=== PATIENT | male | born 1940 | race Caucasian/White ===

== ENCOUNTER 2022-04-12 09:30 | Inpatient (IN) | payer MEDICARE, OTHER, SELFPAY ==
[2022-03-22 09:31] VITALS: BMI 35.0
[2022-04-12] VITALS (12 sets, daily range): BP systolic 84–164; BP diastolic 44–77; PULSE 54–71; RESP 12–19; TEMP 35.5–36.8; O2SAT 91–98; BMI 35.5
--- NOTE | 2022-04-12 | DI.RAD.S_ITS ---
PROCEDURE: XR LUMBAR SPINE 2-3V INDICATIONS: L4-5 L5-S1 TLIF TECHNIQUE: 3 intraoperative views of the lumbar spine were acquired. COMPARISON: None. FINDINGS: Intraoperative spot views demonstrate lumbosacral fusion hardware as well as interbody device placement. IMPRESSION: Intraoperative imaging as above. Dictated by: Addison Murillo M.D. on 04/12/2022 at 16:23 Approved by: Addison Murillo M.D. on 04/12/2022 at 16:23
[2022-04-12 10:16] LABS: COVID19 -Nasal RAPID Negative (Negative)
[2022-04-12] MEDS: LACTATED RINGERS 1,000 ML 42 ML IV ×2 (10:21→14:51)
[2022-04-12] MEDS: ACETAMINOPHEN 325 MG TABLET 975 MG PO (10:23)
[2022-04-12] MEDS: PREGABALIN 75 MG CAPSULE PO (10:23)
--- NOTE | 2022-04-12 11:15 | PM.PREOP ---
Pre-operative Note COVID-19 COVID-19 status: Negative Result date/Date tested (Pos, Neg/Pending): 04/11/22 Criteria for continued procedure: Expected advancement of disease process, Possibility delay results in more complex future surgery or treatment, Increased loss of function, Continuing or worsening of significant or severe pain, Deterioration of the patient's condition or overall health and Delay expected to result in less-positive ultimate med/surg outcome Interval Note History & Physical reviewed/Exam performed by Physician: Yes Changes to H&P: No
[2022-04-12] MEDS: CEFAZOLIN 2 GM/100 ML PREMIX 100 ML IV ×2 (12:00→21:01)
--- NOTE | 2022-04-12 12:36 | SUR.OPER ---
Prone on spine table, head in foam head support, padded chest and pelvic supports, gel pad at knees, lower legs supported by pillows; nipples, genitalia and toes free of pressure, arms secured on foam padded arm boards at <90 degrees abduction. Tape over blanket at thigh secured to table.
[2022-04-12] MEDS: BUPIVACAINE LIPOSOME 266 MG/20 ML VIAL INJ (12:54)
[2022-04-12] MEDS: BUPIVACAINE 0.5% W/ EPI (PF) 30 ML VIAL INJ (12:54)
--- NOTE | 2022-04-12 15:30 | P.OP_ITS ---
Operative Date/Time/Diagnoses Date of procedure: 04/12/22 Time of procedure: 12:00 Pre-op diagnosis: 1. L4-5, L5-S1 spondylolisthesis 2. L4-5, L5-S1 spinal stenosis with neurogenic claudication Post-op diagnosis: same Procedure & Clinicians Procedure: 1. L4-5, L5-S1 Postero-lateral and posterior interbody fusion 2. L4-5, L5-S1 interbody cage placement. 3. L4-5, L5-S1 decompressive laminectomy with bilateral facetecomies 4. L4-5, L5-S1 Posterior segmental instrumentation 5. [place] of bone marrow from iliac crest 6. Utilization of microsurgical technique and operating microscope 7. Utilization of robotic assisted navigation Same procedure as scheduled: Yes Indications: Patient has been having chronic back pain and worsening lumbar radiculopathy and symptoms of neurogenic claudication. Patient failed multiple conservative management with worsening pain weakness and numbness in his lower extremity. Patient has been having difficulty performing activity of daily living. After discussing risks benefits of treatment options, patient elected proceed with surgery. Surgeon: Darshana Oswald Latex Ribbon Machine Operator: Analilia Mills Click Yes if Unassisted: No Anesthesia Type: General Operative Notes Closure Type: primary Specimen(s): none sent Prosthetic devices, grafts, tissues, transplants, or devices: Globus CREO MIS screws, Rise cages Applied: catheter Estimated Blood Loss (mL): 100 Blood products transfused: none Procedure in detail: Patient was seen in the preoperative area. Risks and benefits of the surgery was discussed with the patient. Informed consent was obtained from the patient and placed in the chart. Surgical site was marked. Patient was taken to the operative room. General anesthesia was administered. Prophylactic antibiotic was given to the patient less than 30 min before the incision was made. Patient was placed into a prone position on the Kvng table. Patient's back was then prepped and draped in the sterile fashion. Time-out was performed at this time. After patient was prepped and draped, patient's PSIS was palpated and marked bilaterally. Small 1 cm incision was made over the PSIS for placement of the reference probes. Two trocar was placed into the PSIS 1 on each side. The reference probe was attached to the trocar of the reference apparatus. At this time the C-arm imaging was used to confirm AP and lateral of L4-L5, L5- S1 vertebrae and merged the C-arm imaging using the [employer] robotic navigation system with the CT of the lumbar spine. After successful merging was completed and confirmed, skin marker was used to tonya out the skin incision using the [employer] robotic arm. Bilateral incision was made at this time. Pre templated trajectory was used and guided using the [employer] robotic navigation system for bilateral L4, L5, S1 pedicle screw placement. This was done by using the robotic arm to guide the high-speed bur to make a cortical entry point. Next a drill was placed also using the robotic arm and guided using the navigation system drilling partially through bilateral L4, L5 and S1 pedicles. Next L4, L5, S1 pedicle screws it was pre templated and measured was placed onto the power telephone directory distributor driver and inserted into the pedicles bilaterally. After all 6 screws were placed C-arm imaging was taken of both AP and lateral to confirm the placement. Excellent placement of the screws were confirmed and a matched precisely with the pre planned screw placement using the navigation system. MARs retractor was inserted using [employer] guidence. Globus MARS retractors was placed inside the incision and docked onto the L4 and L5 lamina. Using microsurgical technique and operating microscope, a L4, L5 laminectomy and L4-5, L5-S1 facetectomy was performed using a [place] rongeur. Patient was found have severe lateral recess and neural foramen stenosis which was fully decompressed after the laminectomy facetectomy. More than 75% of the facets were removed during the process of decompression rendering L4-5, L5-S1 level grossly unstable and required a fusion procedure at the same time. The disc space at L4-5, L5-S1 was identified, and a total diskectomy was performed at L4- 5, L5-S1 level. The endplates were decorticated using a rasp and shaver. The total diskectomy and decortication was performed at L4-5, L5-S1 level in order to to accomplish a L4-5, L5-S1 fusion. The local bone from the laminectomy and facetectomy was saved for local bone grafting. After the total diskectomy and decortication was completed, Trifecta bone graft material was combined with local bone that was harvested earlier. At this time, a separate skin is incision was made over the iliac crest. A Jamshidi needle was inserted into the iliac crest through a separate skin incision. 5 cc of bone marrow aspiration was obtained through the separate skin incision using a Jamshidi needle from the iliac crest. The bone marrow aspiration was combined with local bone and the Trifecta bone grafting material. The bone grafting material was placed into the L4-5, L5-S1 interbody space along with a expandable cage. The cage was expanded to its maximum height using the torque limiting screwdriver. The disc preparation as well as the cage insertion were also performed under navigation guidance. After the cage was placed, AP and lateral C-arm imaging was taken to confirm placement of the cage and excellent position was confirmed. Globus MARS retractor was inserted and docked onto the L4-5, L5-S1 posterolateral gutter on the right side. Using the power drill, posterior- lateral decortication was performed at L4-5, L5-S1 level until bleeding cortical bone was identified. The remaining bone grafting material was placed into the L4-5, L5-S1 posterior lateral gutter he order to accomplish posterolateral fusion at the L4-5, L5-S1 level. At this time the tulips were attached to the L4, L5, S1 pedicle screw shanks. After measuring the length of the rods, they were inserted into the tulips of the pedicle screws and locked in place using locking caps and torque limiting screwdriver bilaterally. Total 6 caps and 2 titanium rods was used in order to complete the posterior instrumentation construct. After all the hardware was placed, and confirmed with AP and lateral C-arm imaging, the wound was then irrigated with sterile normal saline and packed with Ray-Cecelia gauze for 3 min to accomplish hemostasis. After the gauze was removed the deep fascia was closed with #1 Vicryl suture. The subcutaneous layer was closed with 2-0 Vicryl. The skin was closed with skin francoise. Patient tolerated the procedure well. There were no complications. Neuro monitoring system was used to monitor patient's neurologic status throughout entire procedure. There was no disturbance of the neural monitoring signals throughout the case. Complications: none Post-operative Condition: stable Disposition: PACU Plan for aftercare: Admit to inpatient hospital
[2022-04-12] MEDS: HYDROMORPHONE 2 MG INJ IV ×2 (16:05→16:10)
[2022-04-12] MEDS: hydrOXYzine 50 MG/ML INJ 25 MG IM (16:05)
[2022-04-12] MEDS: OXYCODONE IR 5 MG TABLET PO (16:39)
[2022-04-12] MEDS: SODIUM CHLORIDE 0.9% 1,000 ML 100 ML IV (18:01)
[2022-04-12] MEDS: ACETAMINOPHEN 325 MG TABLET 650 MG PO (19:05)
[2022-04-12] MEDS: ATORVASTATIN 20 MG TABLET 40 MG PO (21:02)
[2022-04-12] MEDS: DOCUSATE 100 MG CAPSULE PO (21:02)
[2022-04-12] MEDS: SENNOSIDES 8.6 MG TABLET 17.2 MG PO (21:02)
[2022-04-12] MEDS: METOPROLOL IR 50 MG TABLET PO (21:02)
[2022-04-12] MEDS: OXYCODONE IR 5 MG TABLET 10 MG PO (21:13)
[2022-04-13 00:20] VITALS: BP 158/72; PULSE 54; RESP 18; TEMP 36.2; O2SAT 93
[2022-04-13] MEDS: CEFAZOLIN 2 GM/100 ML PREMIX 100 ML IV (03:33)
[2022-04-13] MEDS: SODIUM CHLORIDE 0.9% 1,000 ML 100 ML IV (03:40)
[2022-04-13 04:23] VITALS: BP 162/85; PULSE 62; RESP 19; TEMP 35.9; O2SAT 94
[2022-04-13 05:50] LABS: Hematocrit 39.1 % (41-53); Hemoglobin 13.1 g/dL (13.5-17.5)
[2022-04-13 07:40] VITALS: BP 148/67; PULSE 63; RESP 18; TEMP 36.2; O2SAT 95
--- NOTE | 2022-04-13 07:48 | P.PN_ITS ---
Subjective Subjective Date Patient Seen: 04/13/22 Time Patient Seen: 07:48 Interval history: Pain is [id number]. Denies fever or chills. No nausea or vomiting. Patient has a Marquez catheter and has not been out of bed yet. Exam Vital Signs (past 8 hours): - 04/13/22 00:20 04/13/22 04:23 Temperature 97.2 F L 96.7 F L Pulse Rate 54 L 62 Respiratory Rate 18 19 Blood Pressure 158/72 H 162/85 H Pulse Oximetry 93 94 Oxygen Flow Rate 2 0 Fraction of Inspired Oxygen 28 SaO2/FiO2 Ratio 339 Oxygen Delivery Method CPAP Oxygen Flow Rate 0 Narrative Exam Narrative: 81-year-old male resting comfortably in bed in no apparent distress. Marquez catheter in place. Neurovascular status is intact bilateral lower extremities. Const General: cooperative and comfortable Nutritional Appearance: well nourished Orientation: alert Resp Effort & Inspection: normal respiratory effort and able to speak in complete sentences Objective Labs 04/13/22 05:24 Labs: Laboratory Results - last 24 hr 04/12/22 04/13/22 09:56 05:24 Hgb 13.1 L Hct 39.1 L SARS-CoV-2 (PCR) [facility] Medical History Bunionette of right foot COPD (chronic obstructive pulmonary disease) Easy bruisability Erectile dysfunction Gout Hearing impaired HTN (hypertension) Hypercholesteremia Lumbar disc disease Mild reactive airways disease MORENITA on CPAP Pre-diabetes Spinal stenosis Vertigo Surgical History H/O vasectomy History of carpal tunnel surgery of left wrist Hx of bilateral cataract extraction Hx of laminectomy Hx of shoulder surgery Social History household members: spouse Smoking Status: Former smoker alcohol intake: current Assessment & Plan Post-op Postoperative Procedures: Procedures Operation Date: 04/12/22 11:15 Actual Procedure Side Surgeon p L4-5, L5-S1 TLIF w. posterior instrumentation -Robot Darshana Oswald MD Postoperative day: 1 Postoperative status narrative: Stable Postoperative plan narrative: Discontinue Marquez catheter Mobilize with physical therapy, limit bending, twisting, lifting multimodal pain management Disposition possible discharge home today or tomorrow. Quality VTE Deep Vein Thrombosis/Pulmonary Embolism Present on Admission: No
[2022-04-13 09:50] VITALS: BP 148/67; PULSE 63
[2022-04-13] MEDS: DOCUSATE 100 MG CAPSULE PO (09:50)
[2022-04-13] MEDS: AMLODIPINE 5 MG TABLET 10 MG PO (09:50)
[2022-04-13] MEDS: METOPROLOL IR 50 MG TABLET PO (09:50)
[2022-04-13] MEDS: lisinopriL 20 MG TABLET 40 MG PO (09:50)
[2022-04-13] MEDS: OXYCODONE IR 5 MG TABLET 10 MG PO (10:39)
[2022-04-13 11:00] VITALS: BP 150/61; PULSE 60; RESP 18; O2SAT 94
--- NOTE | 2022-04-13 11:10 | OT.IP.EVAL ---
Current Diagnoses Spondylolisthesis, lumbar region (04/12/22) Spinal stenosis, lumbar region with neurogenic claudication (04/12/22) Surgery Performed Operation Date: 04/12/22 11:15 Actual Procedures p L4-5, L5-S1 TLIF w. posterior instrumentation -Robot - Darshana Oswald MD Past Medical History (Last Reviewed 04/13/22 @ 07:50 by Neo Baez PA-C) Bunionette of right foot COPD (chronic obstructive pulmonary disease) Easy bruisability Erectile dysfunction Gout Hearing impaired HTN (hypertension) Hypercholesteremia Lumbar disc disease Mild reactive airways disease MORENITA on CPAP Pre-diabetes Spinal stenosis Vertigo Surgical History (Last Reviewed 04/13/22 @ 07:50 by Neo Baez PA-C) H/O vasectomy History of carpal tunnel surgery of left wrist Hx of bilateral cataract extraction Hx of laminectomy Hx of shoulder surgery Occupational Therapy Inpatient Evaluation/Re-Eval M1 PT/OT-IP Prior Functional Status Start: 04/13/22 13:48 Freq: NEEDED Status: Active Protocol: Document 04/13/22 10:20 [facility] (Rec: 04/13/22 14:11 [facility] [id number]) Medical Review Prior Functional Status Communication independent Mobility and Gait Pt states able to walk without a device but had pain and was limited. Activities of Daily Living and IADL's Pt states had increased pain with ADL needs. Social History Household Members spouse Living Arrangements Skilled Nurse Facility Number of Floors (Floors) Two Floors Number of Stairs To Enter/Railing? Pt states can stay on the main level and has 3 steps with right rail to enter. Home Environment Standard Height Toilet,Tub/ Shower Home Equipment Four Wheel Walker,Straight Cane,Crutches,Shower Seat with Backrest,Hand Held Shower, Long Handled Shoe Horn,Pipe Stem Sawyer M2 OT-IP Current Condition Start: 04/13/22 13:50 Freq: Status: Active Protocol: Document 04/13/22 10:20 [facility] (Rec: 04/13/22 14:11 [facility] [id number]) Occupational Therapy Current Condition Current Condition Evaluation Date 04/13/22 Treatment Diagnosis S/p L4-5, L5-S1 TLIF Diagnosis Onset Date 04/12/22 Post Operative Precautions Lumbar Precautions Log Roll,No Twisting,Limit Bending,Lifting Restriction of 10 lbs,Gait Belt above Incisional Area M3 OT- IP Subjective and Pain Start: 04/13/22 13:50 Freq: Status: Active Protocol: Document 04/13/22 10:20 [facility] (Rec: 04/13/22 14:11 [facility] [id number]) OT- Subjective Occupational Therapy Visit Type Type Initial Evaluation Visit Start Time 10:20 Visit Stop Time 11:10 Total Visit Minutes 50 Occupational Therapy Visit Comments Patient Comments Pt agreed to get up and pt's family and friends in the room . Patient/Caregiver Goals To go home. OT Pain Assessment Pain When Pain Assessed During Mobility Pain Present Pain Present Pain Reported Location back Intensity 4 Scale Used Numeric (0 - 10) M4 OT- IP ADL's Start: 04/13/22 13:50 Freq: Status: Active Protocol: Document 04/13/22 10:20 [facility] (Rec: 04/13/22 14:11 [facility] [id number]) OT [id number] Comments OT Self-Feeding Comments No issued anticipated. OT ADL-Grooming General Evaluation Areas Needing Assistance Retrieving/Set-up of Grooming Items OT ADL-Oral Care Comments Oral Care Comments educated to hinge at his hips or spit into a cup to best follow his back precautions OT ADL-Dressing General Eval Lower Body Dressing Ability Maximum Assistance Comments OT Dressing Comments ABle to show pt use of gathering machine setter and sock aid to assist with LB dressing needs. Pt states his to assist. OT ADL-Toileting General Evaluation Areas Needing Assistance Perform Perineal Hygiene Comments OT Toileting Comments Pt not able to reach appropriately to wipe during stimulation and would benefit from wet wipes, toilet paper aid and assist. Pt states he sits to use the toilet to urinate at home. OT ADL-Bathing Comments OT Bathing Comments Pt states wanting to try to shower tomorrow. M5 OT- IP IADL's Start: 04/13/22 13:50 Freq: Status: Active Protocol: Document 04/13/22 10:20 [facility] (Rec: 04/13/22 14:11 [facility] [id number]) OT-Instrumental Activities of Daily Living Deficits IADL Deficits Identified Deficits Home Safety Awareness Awareness of Need for Assistance at Home Good Awareness Ability to Problem Solve Emergency Able to Problem Solve Situations Home Safety Comments Pt has a supportive and son to stay with them initially to assist. M6 OT- IP Functional Cognition Start: 04/13/22 13:50 Freq: Status: Active Protocol: Document 04/13/22 10:20 [facility] (Rec: 04/13/22 14:11 [facility] [id number]) Cognitive Factors Limiting Selfcare Function Cognitive Ability Level of Alertness Alert Patient Orientation Name,Place,Situation Attention Span Ability Capable of Focused Attention, Capable of Sustained Attention Ability to Follow Commands Able to Follow One Step Commands Cognitive Comments Cognitive Assessment Comments Pt able to recall his back precautions and able to follow commands for ADl and mobility needs. Pt needing initial VC to keep the FWW in front of him and to push up on surfaces when coming to stand. OT- Vision and Hearing OT- Hearing Assessment OT- Hearing Assessment Use of Hearing Aids OT- Vision Assessment Visual Acuity Glasses For Reading Vision Assessment Comments pt's hearing aids not here in the hospital M7 OT- IP Mobility and Balance Start: 04/13/22 13:50 Freq: Status: Active Protocol: Document 04/13/22 10:20 [facility] (Rec: 04/13/22 14:11 [facility] [id number]) OT- Bed Mobility Assessment Rolling Level of Assistance Minimal Assistance Supine to Sit Supine to Sit Assist Minimal Assistance OT-Transfer Assessment Sit to and From Stand Sit to and from Stand Contact Guard Assistance Transfers Transfer Ability Contact Guard Assistance Technique Transfer Destination Bed,Chair,Toilet Transfer Technique Stand Step Pivot Devices Transfer Assistive Devices Gait Belt,Front Wheeled Walker Comments Mobility Comments RAVI to help get with hand placement so able to push up from the bed to sit upright. CGA to stand and able to walk in the room with FWW and good safety. Next visit would be good to trial the 4ww, as pt has one at home. OT- Balance Assessment Sitting Balance and Reactions Static Sitting Balance Ability Normal Dynamic Sitting Balance Ability Good Standing Balance and Reactions Static Standing Balance Ability Good Dynamic Standing Balance Ability Fair M9 OT- IP Assessment and Plan Start: 04/13/22 13:50 Freq: Status: Active Protocol: Document 04/13/22 10:20 [facility] (Rec: 04/13/22 14:11 [facility] [id number]) OT Summary Assessment and Plan Potential Rehabilitation Potential Excellent Analytic Complexity at Evaluation Low Summary OT Impairments Pain,Balance,Functional Mobility,Grooming,Dressing, Toileting,Bathing,Toilet Transfers,Shower Transfers Progress Towards Goals Progressing Toward Goals Assessment Summary Pt low complexity and main barrier is pain and so far doing well and just needing minimal assist for mobility needs and will needs more assist with ADl needs for LB dressing, toilet hygiene and bathing needs. To go over caregiver training with showering and dressing needs tomorrow. Goals Self-Feeding Goal Independent Grooming Goal Independent Dressing Goal Minimal Assistance Toileting Goal Minimal Assistance Bathing Goal Minimal Assistance Toilet Transfer Goal Independent Shower Transfer Goal Standby Assistance Days to Meet Goals 3 Frequency of Treatment Frequency Of Treatment Once a Day Treatment Plan OT Treatment Plan ADL Training,Functional Mobility,Patient/Family Education,Discharge Planning Other Treatment Recommendations and Next shower/caregiver training Treatment Focus Discharge Recommendations OT Discharge Recommendations Home with Assistance Home Equipment Needs possibly fww Transportation Needs at Discharge Private Vehicle
--- NOTE | 2022-04-13 11:48 | PT.IIE ---
Current Diagnoses Spondylolisthesis, lumbar region (04/12/22) Spinal stenosis, lumbar region with neurogenic claudication (04/12/22) Surgery Performed Operation Date: 04/12/22 11:15 Actual Procedures p L4-5, L5-S1 TLIF w. posterior instrumentation -Robot - Darshana Oswald MD Surgical History (Last Reviewed 04/13/22 @ 07:50 by Neo Baez PA-C) H/O vasectomy History of carpal tunnel surgery of left wrist Hx of bilateral cataract extraction Hx of laminectomy Hx of shoulder surgery Medical History (Last Reviewed 04/13/22 @ 07:50 by Neo Baez PA-C) Bunionette of right foot COPD (chronic obstructive pulmonary disease) Easy bruisability Erectile dysfunction Gout Hearing impaired HTN (hypertension) Hypercholesteremia Lumbar disc disease Mild reactive airways disease MORENITA on CPAP Pre-diabetes Spinal stenosis Vertigo Physical Therapy Inpatient Evaluation/Re-Eval M1 PT/OT-IP Prior Functional Status Start: 04/13/22 13:48 Freq: NEEDED Status: Active Protocol: Document 04/13/22 11:48 AB (Rec: 04/13/22 14:13 AB [id number]) Medical Review Prior Functional Status Medical History Reviewed Yes Communication able to make needs known Mobility and Gait pt stated that he is independent with all mobilities and ambulation without AD Social History Household Members spouse Living Arrangements House Number of Floors (Floors) Two Floors Number of Stairs To Enter/Railing? pt stays on main level of the house has 4 steps R rail ascending to enter the house Home Environment High Toilet,Tub/Shower Home Equipment Four Wheel Walker,Straight Cane,Shower Seat with Backrest ,Hand Held Shower Additional Social History Comment pt spouse will assist pt; son will be staying for ~ 2 days to assist as well M2 PT-IP Current Condition Start: 04/13/22 13:48 Freq: NEEDED Status: Active Protocol: Document 04/13/22 11:48 AB (Rec: 04/13/22 14:13 AB [email or web address]) Physical Therapy Current Condition Current Condition Evaluation Date 04/13/22 Treatment Diagnosis s/p L4-5, L5S1 TLIF; difficulty in walking Onset Date 04/12/22 M3 PT-IP Subjective Start: 04/13/22 13:48 Freq: NEEDED Status: Active Protocol: Document 04/13/22 11:48 AB (Rec: 04/13/22 14:13 AB [id number]) Subjective Physical Therapy Visit Type Type Initial Evaluation Visit Start Time 11:48 Visit Stop Time 12:11 Total Visit Minutes 23 Number of CUSTOMER SERVICE RECEPTIONIST Visits 0 Physical Therapy Visit Comments Patient Comments pt is agreeable to do PT Therapy Pain Assessment Pain When Pain Assessed At Rest Pain Present Pain Present Pain Reported Location back Intensity 3 Pain Management Techniques Apply Cold,Distraction, Modification of Treatment,Re- positioning,Timing of Activity with Medications M4 PT-IP Mobility and Gait Start: 04/13/22 13:48 Freq: NEEDED Status: Active Protocol: Document 04/13/22 11:48 AB (Rec: 04/13/22 14:13 AB [id number]) PT-Bed Mobility Assessment Rolling Type of Rolling Log Rolling Level of Assist Standby Assistance Supine to Sit Supine to Sit Standby Assistance Sit to Supine Sit to Supine Standby Assistance PT-Transfer Assessment Sit to and From Stand Sit to and from Stand Standby Assistance,Contact Guard Assistance,1 Person Assistance,Use of Upper Extremities Equipment Transfer Assistive Device Gait Belt,Front Wheeled Walker Orthotic/Prosthetic Devices or Brace: No Transfers Transfer Destination Bed Transfer Technique ambulated Transfer Ability Level of Assist Standby Assistance,Contact Guard Assistance,1 Person Assistance,Use of Upper Extremities Comments Mobility Comments pt sitting on chair. spouse and son in room. reviewed back precautions with pt and pt able to recall. completed sit to stand CGA and ambulated in room ~ 30 ft using FWW CGA. sat on EOB and completed log roll sit <>supine SBA with cues. completed sit to stand from EOB x 2 SBA and initial cues for techniques. ambulated in room using FWW ~ 40ft SBA. completed bed mobility again SBA without cues. step transfer to chair using FWW SBA. positioned pt on the chair. call light and table placed within reach. Gait Assessment Gait Gait Assistance Required: Standby Assistance,Contact Guard Assist,1 Person Assist Distance (Feet) 40 Able to Maintain Weight Bearing Status Yes During Gait Assistive Devices Assistive Device Gait Belt,Front Wheeled Walker Orthotic/Prosthetic Devices or Brace: No Gait Deviations General Gait Pattern Decreased Stride Length, Decreased Feet Clearance Factors Limiting Gait Function Factors Limiting Gait Function Decreased Activity Tolerance, Decreased Strength,Difficulty Following Directions,Limited Range of Motion,Pain,Poor Balance PT-Balance Assessment Sitting Balance and Reactions Static Sitting Balance Ability Good Dynamic Sitting Balance Ability Good Standing Balance and Reactions Static Standing Balance Ability Fair Dynamic Standing Balance Ability Fair Device Used FWW M5 PT-IP Objective Assessments Start: 04/13/22 13:48 Freq: NEEDED Status: Active Protocol: Document 04/13/22 11:48 AB (Rec: 04/13/22 14:13 AB [id number]) Orientation Orientation/Cognition Level of Alertness Alert Orientation Name,Place,Situation Language Function Ability No Deficits Noted Safety Awareness Decreased Safety Awareness Memory Description No Deficits Noted Gross Range of Motion Lower Extremity ROM Assessment Within Functional Limits Strength Lower Extremity Strength Hip 4-/5 Knee 4-/5 Coordination Assessment Gross Coordination Gross Coordination WNL Sensation Assessment Sensation Gross Sensation WNL Muscle Tone Muscle Tone WNL Yes M6 PT-IP Treatment Start: 04/13/22 13:48 Freq: NEEDED Status: Active Protocol: Document 04/13/22 11:48 AB (Rec: 04/13/22 14:13 AB [email or web address]) Physical Therapy Treatment Education Education Provided Precautions,Weight Bearing Status,Safety M7 PT-IP Assessment and Plan Start: 04/13/22 13:48 Freq: NEEDED Status: Active Protocol: Document 04/13/22 11:48 AB (Rec: 04/13/22 14:13 AB [email or web address]) PT Summary Assessment and Plan Potential Rehabilitation Potential Fair Status of Condition at Evaluation Stable Summary Impairments Pain,ROM,Strength,Balance, Coordination,Sensation,Tone, Cognition,Bed Mobility, Transfers,Gait,Activity Tolerance Assessment Summary pt requiring SBA to CGA with mobility using FWW. pt plans to go home with spouse to assist him will conduct caregiver training and stair climbing training when appropriate. pt also has a 4WW at home and does not have a FWW. will assess safety with use of 4WW. Goals Bed Mobility Goal Independent Transfer Goal Independent,Front Wheeled Walker,Four Wheeled Walker Gait Goal Independent,Front Wheel Walker ,Four Wheel Walker Gait Distance 200 Other Goals up/down 4 steps R rail ascending SBA Days to Meet Goals 5 Frequency of Treatment Frequency Of Treatment Twice a Day Treatment Plan Physical Therapy Treatment Plan Bed Mobility Training,Transfer Training,Gait Training, Therapeutic Exercise,Balance Retraining,Post Op Education, Discharge Planning,Hot or Cold Pack,Neuromuscular Re-ed, Coordination Retraining,Manual Therapy Other Recommendations and Next Treatment assess safety with 4WW use, Focus caregiver training, stair climbing training Precautions Lumbar Precautions Log Roll,No Twisting,Limit Bending,Lifting Restriction of 10 lbs,Gait Belt above Incisional Area Recommendations To Nursing Amount of Assist Needed 1 Person Assist Discharge Recommendations PT Discharge Recommendations Home with Assistance Transportation Needs at Discharge Private Vehicle
--- NOTE | 2022-04-13 12:31 | CM.DANOTE ---
Initial DCP Assessment Note Pt is a 81 yo male, resident of [place], now POD#1 from [facility] by Dr Oswald PCP: Oswaldo Shaver Payer: [facility] Reviewed chart, pt discussed in multidisciplinary rounds this morning. Met w/patient, spouse and two other people in room (friends?) as OT Alexandrea was starting her eval; introduced self and role, kept visit brief. Patient hopeful to return home to the care of his and friends. CM team will plan to follow closely for any DC needs or concerns that arise; therapy recommendations pending DONTA Rehman Discharge Planning/Care Management CM Discharge Assessment Start: 04/13/22 12:27 Freq: Status: Active Protocol: Document 04/13/22 12:28 ILENE (Rec: 04/13/22 12:31 ILENE [id number]) Discharge Planning Assessment Assigned Business Development Director DONTA Cortez DPOA/Assigned Designee Name Mica Craig, spouse Contact Information [phone] Advance Directives? Yes Advance Directives on File No History Provided By Patient,Medical Record Prior Living Arrangements House Household Members spouse Type of transporation used prior to Drives own vehicle admit Independent with ADL's Yes Is patient alert and oriented? Yes Needs Assistance With Meal Prep,Managing Medications ,Home Chores / Shopping Barriers to Discharge No Comment Anticipate home w/family and friends; pending therapy recommendations Discharge Plan Home Transportation Arrangement Spouse Additional Comment CM team will plan to follow closely for any DC needs or concerns that arise Whiteboard Updated in Patient Room with Yes name and ext. # of Business Development Director
[2022-04-13 15:10] VITALS: BP 161/68; PULSE 59; RESP 16; TEMP 37.2; O2SAT 98
--- NOTE | 2022-04-13 15:15 | PT.IPTN ---
Current Diagnoses Spondylolisthesis, lumbar region (04/12/22) Spinal stenosis, lumbar region with neurogenic claudication (04/12/22) Surgery Performed Operation Date: 04/12/22 11:15 Actual Procedures p L4-5, L5-S1 TLIF w. posterior instrumentation -Robot - Darshana Oswald MD Physical Therapy Treatment Note M2 PT-IP Current Condition Start: 04/13/22 13:48 Freq: NEEDED Status: Active Protocol: Document 04/13/22 14:28 SP (Rec: 04/13/22 15:50 SP [id number]) Physical Therapy Current Condition Current Condition Evaluation Date 04/13/22 Treatment Diagnosis s/p L4-5, L5S1 TLIF; difficulty in walking Onset Date 04/12/22 M3 PT-IP Subjective Start: 04/13/22 13:48 Freq: NEEDED Status: Active Protocol: Document 04/13/22 14:28 SP (Rec: 04/13/22 15:50 SP [id number]) Subjective Physical Therapy Visit Type Type Treatment Note Visit Start Time 14:28 Visit Stop Time 15:15 Total Visit Minutes 47 Notes completed CGT with pt, donned gait belt and provided CGA/close SBA support needed throughout tx. Vital: seated chair: BP 151/65 HR 61 SaO2 95% on RA post mobility: BP 161/68 HR 58 Reports 3/10 pain little increase in back. Number of COSTUME SEAMSTRESS Visits 1 Physical Therapy Visit Comments Patient Comments pt is agreeable to do PT Patient Goals return home with / son to assist him needed Therapy Pain Assessment Pain When Pain Assessed At Rest Pain Present Pain Present Pain Reported Location back Intensity 3 Scale Used 3/10 at rest, 3-4/10 with mobility medicated last 5 hrs ago Description With Movement Pain Behaviors Facial Grimacing Pain Management Techniques Apply Cold,Distraction, Modification of Treatment,Re- positioning M4 PT-IP Mobility and Gait Start: 04/13/22 13:48 Freq: NEEDED Status: Active Protocol: Document 04/13/22 14:28 SP (Rec: 04/13/22 15:50 SP [id number]) PT-Bed Mobility Assessment Rolling Type of Rolling Log Rolling Level of Assist Standby Assistance Sit to Supine Sit to Supine Standby Assistance Scooting Scooting Up and Down in Bed Standby Assistance PT-Transfer Assessment Sit to and From Stand Sit to and from Stand Standby Assistance,Contact Guard Assistance,Use of Upper Extremities Equipment Transfer Assistive Device Gait Belt,4 Wheeled Walker Orthotic/Prosthetic Devices or Brace: No Transfers Transfer Destination Bed,Toilet Transfer Technique ambulated w/ 4WW Transfer Ability Level of Assist Standby Assistance,Contact Guard Assistance,Use of Upper Extremities Comments Mobility Comments Pt seated up in chair when arrived. Scoot to EOchair, donned gait belt to chest area. Pt applied 4WW brakees, completed STS use chair arms CGA, unlocked brakes gait using 4WW to wc in hallway 20 ft CGA/SBA back stepping reach back slow descent sit, wheeled to stairs, ascend/ descend 3 stairs BUE on R HR assimulate home enterance CGA via , COSTUME SEAMSTRESS cued her positioning and CGA gait belt for safety behind pt ascend/ front pt descend and self contact rail for support. Good performance. Pt completed gait back to room using FWW approx x150 ft CG/ close SBA w /c follow but not needed. Pt elected use bathroom when returned room, good pivot back to toilet CGA and use grab bar slow sit. Pt able to void but unsure amount due to no hat in toilet, stated little burning and took little while to complete. STS from toilet sBA, gait to sink w/ 4WW, washed hand unsupported stable and returned to bed SBA stand >sit>R SL ed support of pillows between BLEs/BUEs and pillow behind back for spinal support alignment vs supine pillow under thighs both felt comfortable. Pt had call light and all needs in reach before left, / son in room. Pt is ok to return home with / son to assist him when medically cleared. Ed to pt if feel needs PT can ask physican but pt doing well and unsure is needed, COSTUME SEAMSTRESS addressed use taping plastic over surgery site for shower needs to keep dry use shower chair if wish to sit and complete. to assist dressing if needed to maintain no bending. Gait Assessment Gait Gait Assistance Required: Standby Assistance,Contact Guard Assist Distance (Feet) 150 Able to Maintain Weight Bearing Status Yes During Gait Assistive Devices Assistive Device Gait Belt,4 Wheeled Walker Orthotic/Prosthetic Devices or Brace: No Gait Deviations General Gait Pattern Antalgic Factors Limiting Gait Function Factors Limiting Gait Function Decreased Activity Tolerance, Decreased Strength,Limited Range of Motion,Pain Comments Gait Comments see mobility comments. Stair Climbing Assessment Evaluation Level of Assist On Stairs Contact Guard Assistance Devices Stair Climbing Assistive Devices Right Railing Technique/Endurance Stair Climbing Direction Ascend and Descend Stair Climbing Technique Step to Step Number of Steps Climbed 3 Stair Climbing Set # Repetitions (reps) 1 Comments Stair Climbing Comments step to patterning BUE on R HR asc/descending, stable only provided CGA good pacing control. PT-Balance Assessment Sitting Balance and Reactions Static Sitting Balance Ability Normal Dynamic Sitting Balance Ability Good Standing Balance and Reactions Static Standing Balance Ability Good Dynamic Standing Balance Ability Good Device Used 4WW M5 PT-IP Objective Assessments Start: 04/13/22 13:48 Freq: NEEDED Status: Active Protocol: Document 04/13/22 11:48 AB (Rec: 04/13/22 14:13 AB [id number]) Orientation Orientation/Cognition Level of Alertness Alert Orientation Name,Place,Situation Language Function Ability No Deficits Noted Safety Awareness Decreased Safety Awareness Memory Description No Deficits Noted Gross Range of Motion Lower Extremity ROM Assessment Within Functional Limits Strength Lower Extremity Strength Hip 4-/5 Knee 4-/5 Coordination Assessment Gross Coordination Gross Coordination WNL Sensation Assessment Sensation Gross Sensation WNL Muscle Tone Muscle Tone WNL Yes M6 PT-IP Treatment Start: 04/13/22 13:48 Freq: NEEDED Status: Active Protocol: Document 04/13/22 14:28 SP (Rec: 04/13/22 15:50 SP [id number]) Physical Therapy Treatment Education Education Provided Precautions,Weight Bearing Status,Safety M7 PT-IP Assessment and Plan Start: 04/13/22 13:48 Freq: NEEDED Status: Active Protocol: Document 04/13/22 14:28 SP (Rec: 04/13/22 15:50 SP [id number]) PT Summary Assessment and Plan Potential Rehabilitation Potential Good Status of Condition at Evaluation Stable Summary Impairments Pain,ROM,Strength,Balance, Coordination,Sensation,Tone, Cognition,Bed Mobility, Transfers,Gait,Activity Tolerance Progress Towards Goals Progressing Toward Goals,Slow Progress due to Pain,Slow Progress due to Activity Tolerance Assessment Summary Completed all mobility CG/SBA w/4WW. Able to walk further upto 150 ft in hallway, complete 3 stair mgt R HR CGA, stable. Pt able to void, see mobility comments. Pt is ok return home when medically cleared w/ /son to assist him when needed use 4WW. Goals Bed Mobility Goal Independent Transfer Goal Independent,Front Wheeled Walker,Four Wheeled Walker Gait Goal Independent,Front Wheel Walker ,Four Wheel Walker Gait Distance 200 Other Goals up/down 4 steps R rail ascending SBA Days to Meet Goals 5 Frequency of Treatment Frequency Of Treatment Twice a Day Treatment Plan Physical Therapy Treatment Plan Bed Mobility Training,Transfer Training,Gait Training, Therapeutic Exercise,Balance Retraining,Post Op Education, Discharge Planning,Hot or Cold Pack,Neuromuscular Re-ed, Coordination Retraining,Manual Therapy Other Recommendations and Next Treatment Further distance gait LRAD, Focus balance activities Precautions Lumbar Precautions Log Roll,No Twisting,Limit Bending,Lifting Restriction of 10 lbs,Gait Belt above Incisional Area Other Precautions Good recall to precautions and maintained all throughout tx. Recommendations To Nursing Amount of Assist Needed Standby Assistance Discharge Recommendations PT Discharge Recommendations Home with Assistance Transportation Needs at Discharge Private Vehicle
[2022-04-13] MEDS: ACETAMINOPHEN 325 MG TABLET 650 MG PO (15:58)
--- NOTE | 2022-04-13 16:38 | P.DS_ITS ---
History of Present Illness History of Present Illness Date Patient Seen: 04/13/22 Time Patient Seen: 16:38 Chief complaint: Back pain Narrative: See progress note Discharge Providers Provider Date of admission: 04/12/22 09:30 Discharge Date: 04/13/22 Primary care physician: Oswaldo Shaver MD Consults: 04/12/22 16:41 Consult to Occupational Therapy Evaluate & Treat Comment: Physician Instructions: Evaluate and treat Consult to Physical Therapy Evaluate & Treat Comment: Physician Instructions: Evaluate and Treat Discharge provider: Neo Baez PA-C Summary Hospital Course Discharge Diagnosis: 1. L4-5, L5-S1 spondylolisthesis 2. L4-5, L5-S1 spinal stenosis with neurogenic claudication Hospital Course: Procedure: 1. L4-5, L5-S1 Postero-lateral and posterior interbody fusion 2. L4-5, L5-S1 interbody cage placement. 3. L4-5, L5-S1 decompressive laminectomy with bilateral facetecomies 4. L4-5, L5-S1 Posterior segmental instrumentation 5. Pe Ell of bone marrow from iliac crest 6. Utilization of microsurgical technique and operating microscope 7. Utilization of robotic assisted navigation Same procedure as scheduled: Yes Indications: Patient has been having chronic back pain and worsening lumbar radiculopathy and symptoms of neurogenic claudication. Patient failed multiple conservative management with worsening pain weakness and numbness in his lower extremity.? Patient has been having difficulty performing activity of daily living.? After discussing risks benefits of treatment options, patient elected proceed with surgery. Surgeon: Darshana Oswald Accounts Payable Professional: Analilia Mills Click Yes if Unassisted: No Anesthesia Type: General Operative Notes Closure Type: primary Specimen(s): none sent Prosthetic devices, grafts, tissues, transplants, or devices: Globus CREO MIS screws, Rise cages Applied: catheter Estimated Blood Loss (mL): 100 Blood products transfused: none Patient admitted to the hospital for the above-mentioned procedure. Patient consented to the same. Patient underwent lumbar fusion on April 12, 2022. Patient back in his room recovering well as in stable condition. Marquez catheter was discharged this morning. Patient has been up with physical therapy twice. Patient has urinated on his own. Patient has assistance at home. Patient will be discharged home today in stable condition. Exam Vital Signs (past 8 hours): - 04/13/22 09:50 04/13/22 09:30 04/13/22 11:00 Temperature Pulse Rate 63 60 Respiratory Rate 18 Blood Pressure 148/67 H 150/61 H Pulse Oximetry 94 Oxygen Delivery Method Room Air Oxygen Flow Rate 0 04/13/22 15:10 Temperature 99.0 F Pulse Rate 59 L Respiratory Rate 16 Blood Pressure 161/68 H Pulse Oximetry 98 Oxygen Delivery Method Oxygen Flow Rate 0 Fraction of Inspired Oxygen 28 SaO2/FiO2 Ratio 339 Oxygen Delivery Method Room Air Oxygen Flow Rate 0 Narrative Exam Narrative: Rounded this afternoon and patient was sitting comfortably in bedside chair about to participate in physical therapy. Patient no apparent distress. Objective Labs 04/13/22 05:24 Labs: Laboratory Results - last 24 hr 04/13/22 05:24 Hgb 13.1 L Hct 39.1 L PFSH Medical History Bunionette of right foot COPD (chronic obstructive pulmonary disease) Easy bruisability Erectile dysfunction Gout Hearing impaired HTN (hypertension) Hypercholesteremia Lumbar disc disease Mild reactive airways disease MORENITA on CPAP Pre-diabetes Spinal stenosis Vertigo Surgical History H/O vasectomy History of carpal tunnel surgery of left wrist Hx of bilateral cataract extraction Hx of laminectomy Hx of shoulder surgery Social History household members: spouse Smoking Status: Former smoker alcohol intake: current Discharge Assessment & Plan Assessment and Plan Assessment: Patient progressing as expected status post lumbar fusion Plan of Treatment: Weight-bearing as tolerated, limit bending, twisting, lifting Multimodal pain management Follow-up in 2 weeks Discharge home today in stable condition Discharge Plan Discharge Plan Patient Disposition: Home Discharge orders & Medications Prescriptions: New acetaminophen 325 mg Tablet 650 mg PO Q6HR PRN (Reason: Pain, Mild (1-3)) Qty: 60 0RF docusate sodium 100 mg Capsule 100 mg PO BID Qty: 10 0RF oxycodone 5 mg Tablet 5 mg PO Q4H PRN (Reason: Pain, Severe (7-10)) Qty: 60 0RF Continued atorvastatin 40 mg Tablet 40 mg PO BEDTIME indapamide 2.5 mg Tablet 2.5 mg PO QAM amlodipine 10 mg Tablet 10 mg PO DAILY metoprolol tartrate 50 mg Tablet 50 mg PO BID ramipril 10 mg Capsule 10 mg PO BID Discontinued naproxen 500 mg Tablet 500 mg PO BID PRN (Reason: Gout Flare) Follow up/Referrals: Darshana Oswald MD [Physician] - 2 Weeks (Follow up w/ Dr Oswald or a PA in his practice i n 10-14 days after surgery. Call for appointment.) Oswaldo Shaver MD [Primary Care Provider] - Diet/Activity/Treatments Diet: Diet as Tolerated Activity: No deep bending or twisting at the waist. No lifting more than 10 pounds. Cold/Heat Therapy: Heating pad to back as needed for pain. Skin/Wound/Dressing Care Report to your healthcare provider any signs of infection, such as:: chills, fever, night sweats, unusual drainage and unusual redness Dressing: May shower; keep dressing as dry as possible. If dressing becomes wet or dirty inside, may remove and replace with clean, dry gauze. No bathing or otherwise soaking incisions. Do not apply any creams, lotions, or ointments to incisions. Visit Report/Discharge Packet Instructions: DI for Prescription Opioid Use Stand Alone Forms: Patient Portal/API, Stroke Signs & Symptoms, Surgery Discharge Discharge Data Primary Care Provider: Oswaldo Shaver Quality VTE Deep Vein Thrombosis/Pulmonary Embolism Present on Admission: No
--- NOTE | 2022-04-13 19:24 | PC.NURSE ---
Pt discharged home at 1830, escorted off floor in wheelchair, accompanied by spouse and hospital staff. IV removed, discharge teaching completed including new medications and follow up appointments. Questions and concerns addressed. Pt left floor with all belongings.
== END 2022-04-13 19:27 | disposition home or self-care (01) | DRG 455 ==
PROVIDERS: Admitting Provider Orthopaedic Surgery Orthopaedic Surgery of the Spine; PCP Family Medicine; Referring Provider Orthopaedic Surgery Orthopaedic Surgery of the Spine; Visit Provider Orthopaedic Surgery Orthopaedic Surgery of the Spine
PROC: 0SG00AJ Fusion of Lumbar Vertebral Joint with Interbody Fusion Device, Posterior Approach, Anterior Column, Open Approach (ICD-10-PCS; principal; 2022-04-12 11:15)
DX: M48.062 Spinal stenosis, lumbar region with neurogenic claudication (principal); M43.17 Spondylolisthesis, lumbosacral region; M43.16 Spondylolisthesis, lumbar region; M48.07 Spinal stenosis, lumbosacral region; I10 Essential (primary) hypertension; G47.33 Obstructive sleep apnea (adult) (pediatric); E78.00 Pure hypercholesterolemia, unspecified; Z20.822 Contact with and (suspected) exposure to COVID-19; Z87.891 Personal history of nicotine dependence
CPT/HCPCS: 36415; 72100; 76000; 82962; 85014; 85018; 87635; 94760; 94762; 97116; 97161; 97165; 97530; 97535; C9803; C1713; C1831; C9290; J0330; J0690; J1100; J1170; J2405; J2704; J3010; J3410